=== PATIENT | female | born 1980 | race Caucasian/White ===

== ENCOUNTER 2017-05-23 17:35 | Emergency (ER) | payer MEDICAID ==
[2017-05-23 17:50] VITALS: O2SAT 96
[2017-05-23] MEDS ORDERED: NS 1,000 ML IV ONE (18:18)
[2017-05-23] MEDS ORDERED: KETOROLAC 30 MG/1 ML SDV IVP ONE (18:18)
--- NOTE | 2017-05-23 18:23 | EDPHY ---
H & P Stated Complaint: nausea, abdominal pain one day Time Seen by Provider: 05/23/17 17:56 HPI/ROS: CHIEF COMPLAINT: Abdominal pain nausea History by patient HISTORY OF PRESENT ILLNESS: 36-year-old otherwise healthy woman with an IUD presents complaining of 1 day of intermittent sharp stabbing abdominal pain which she described as migratory and lasting just a few seconds at a time. Occurred in her right upper quadrant as well as her right lower quadrant and left upper quadrant. She has also had some pain in which she describes as her "kidneys ". Patient states that last night she woke up in the middle the night and was having a hard time getting comfortable last night but could not explain exactly why and was not having any specific pain at that time.. She also felt her heart was racing at that time. This morning she woke up with a poor appetite and felt nauseated after eating. However this afternoon she was able to eat some crackers without making symptoms worse. She had a normal bowel movement yesterday and none today. There has been no diarrhea. She does not feel constipated. She has been passing gas. She does say she had a fever of 101 at home. She denies any respiratory symptoms including cough, runny nose or chest pain. She has had no actual vomiting. She denies any dysuria, urgency frequency or hematuria but does say that 2 days ago she had 1 episode where she felt like maybe she was "getting a UTI "with the symptoms resolved after urinating once. She has no prior history of kidney stones. Her family history is unknown because she is adopted. She was seen by her primary care physician for vaginal discharge about a week ago and had negative cultures at that time and ultrasound showed that her IUD was in place. She has started some vaginal spotting but states that she has a copper IUD in that this is about the time she is expected to get her cycle. Patient had a glass of wine to drink last night and as use occasional marijuana but not recently. She denies any other medication or drug use. REVIEW OF SYSTEMS: As in HPI, and all other systems reviewed and are negative Source: Patient - Personal History LMP (Females 10-55): IUD In Place Current Tetanus Diphtheria and Acellular Pertussis (TDAP): Yes - Medical/Surgical History Hx Asthma: No Hx Chronic Respiratory Disease: No Hx Diabetes: No Hx Cardiac Disease: No Hx Renal Disease: No Hx Cirrhosis: No Hx Alcoholism: No Hx HIV/AIDS: No Hx Splenectomy or Spleen Trauma: No Other PMH: none - Social History Smoking Status: Never smoked - Physical Exam Exam: General Appearance: Alert, well appearing. Eyes: Pupils equal and round, no pallor or injection. Mouth: Mucous membranes moist. Respiratory: Normal, effort, lungs are clear to auscultation. No wheezes, rales or rhonchi. Cardiovascular: Regular rate and rhythm. S1, S2, no murmurs, gallops or rubs appreciated Gastrointestinal: bowel sounds normal, Abdomen is soft and nondistended nontender, no masses Back: Mild bilateral CVA tenderness, no bony tenderness Neurological: Awake, alert and oriented x 3, no pronator drift, normal gait, no pronator drift Skin: Warm and dry, no rashes. Musculoskeletal: No deformities or tenderness. Extremities: full range of motion, no edema Psychiatric: Patient has normal affect, there is no agitation. Constitutional: Initial Vital Signs Temperature (C) 36.8 C 05/23/17 17:46 Heart Rate 98 05/23/17 17:46 Respiratory Rate 18 05/23/17 17:46 Blood Pressure 120/86 H 05/23/17 17:46 O2 Sat (%) 96 05/23/17 17:46 O2 Delivery Mode Room Air Allergies/Adverse Reactions: Sulfa (Sulfonamide Antibiotics) Allergy (Verified 05/23/17 17:50) Home Medications: Medication Instructions Recorded NK [No Known Home Meds] 05/23/17 Medical Decision Making ED Course/Re-evaluation: 36-year-old woman presents complaining of nausea and intermittent stabbing abdominal pain and generalized malaise and fever at home. Patient is afebrile here. Urinalysis is positive for blood but no evidence of infection. The patient is starting her menses currently. Patient was given IV fluids and ketorolac with improvement in her symptoms. Her abdominal exam was benign with no evidence of acute surgical processes such as appendicitis at this time. Patient had a normal white blood cell count and normal electrolytes. It is possible the patient's symptoms are due to ureterolithiasis history intermittent stabbing pain and hematuria. She has however normal kidney function is currently asymptomatic. These may also be early flu symptoms with her fever at home. There is no evidence of urinary tract infection. At this point I recommended symptomatic treatment and re-evaluation if she develops new or worsening symptoms. We discussed home care with ibuprofen and fluids and return precautions including but not limited to inability to take oral fluids, worsening pain, respiratory symptoms or other new problems or concerns. Patient and understand agreeable to this plan. - Data Points Laboratory Results: Laboratory Results 05/23/17 18:20 05/23/17 18:20 05/23/17 05/23/17 05/23/17 18:20 18:20 17:55 WBC 7.98 10^3/uL 10^3/uL (3.80-9.50) RBC 5.16 10^6/uL 10^6/uL (4.18-5.33) Hgb 15.3 g/dL g/dL (12.6-16.3) Hct 44.2 % % (38.0-47.0) MCV 85.7 fL fL (81.5-99.8) MCH 29.7 pg pg (27.9-34.1) MCHC 34.6 g/dL g/dL (32.4-36.7) RDW 12.2 % % (11.5-15.2) Plt Count 240 10^3/uL 10^3/uL (150-400) MPV 8.3 fL L fL (8.7-11.7) Neut % (Auto) 82.8 % H % (39.3-74.2) Lymph % (Auto) 12.2 % L % (15.0-45.0) [place]estone % (Auto) 4.1 % L % (4.5-13.0) Eos % (Auto) 0.3 % L % (0.6-7.6) Baso % (Auto) 0.5 % % (0.3-1.7) Nucleat RBC Rel Count 0.0 % % (0.0-0.2) Absolute Neuts (auto) 6.61 10^3/uL H 10^3/uL (1.70-6.50) Absolute Lymphs (auto) 0.97 10^3/uL L 10^3/uL (1.00-3.00) Absolute Monos (auto) 0.33 10^3/uL 10^3/uL (0.30-0.80) Absolute Eos (auto) 0.02 10^3/uL L 10^3/uL (0.03-0.40) Absolute Basos (auto) 0.04 10^3/uL 10^3/uL (0.02-0.10) Absolute Nucleated RBC 0.00 10^3/uL 10^3/uL (0-0.01) Immature Gran % 0.1 % % (0.0-1.1) Immature Gran # 0.01 10^3/uL 10^3/uL (0.00-0.10) Sodium 137 mEq/L mEq/L (134-144) Potassium 4.2 mEq/L mEq/L (3.5-5.2) Chloride 102 mEq/L mEq/L (97-110) Carbon Dioxide 20 mEq/l L mEq/l (22-31) Anion Gap 15 mEq/L mEq/L (8-16) BUN 12 mg/dL mg/dL (7-23) Creatinine 0.7 mg/dL mg/dL (0.6-1.0) Estimated GFR > 60 Glucose 105 mg/dL H mg/dL (70-100) Calcium 9.1 mg/dL mg/dL (8.5-10.4) Urine Color Urine Appearance Urine pH Ur Specific Terry Urine Protein Urine Ketones Urine Blood Urine Nitrate Urine Bilirubin Urine Urobilinogen Ur Leukocyte Esterase Urine RBC Urine WBC Ur Epithelial Cells Urine Bacteria Urine Glucose Urine Test NEGATIVE 05/23/17 17:55 WBC RBC Hgb Hct MCV MCH MCHC RDW Plt Count MPV Neut % (Auto) Lymph % (Auto) [place] % (Auto) Eos % (Auto) Baso % (Auto) Nucleat RBC Rel Count Absolute Neuts (auto) Absolute Lymphs (auto) Absolute Monos (auto) Absolute Eos (auto) Absolute Basos (auto) Absolute Nucleated RBC Immature Gran % Immature Gran # Sodium Potassium Chloride Carbon Dioxide Anion Gap BUN Creatinine Estimated GFR Glucose Calcium Urine Color YELLOW Urine Appearance CLEAR Urine pH 6.0 (5.0-7.5) Ur Specific Terry <= 1.005 (1.002-1.030) Urine Protein NEGATIVE (NEGATIVE) Urine Ketones NEGATIVE (NEGATIVE) Urine Blood 2+ H (NEGATIVE) Urine Nitrate NEGATIVE (NEGATIVE) Urine Bilirubin NEGATIVE (NEGATIVE) Urine Urobilinogen 0.2 EU EU (0.2-1.0) Ur Leukocyte Esterase NEGATIVE (NEGATIVE) Urine RBC 3-5 /hpf H /hpf (0-3) Urine WBC 0-1 /hpf /hpf (0-3) Ur Epithelial Cells TRACE /lpf /lpf (NONE-1+) Urine Bacteria TRACE /hpf H /hpf (NONE SEEN) Urine Glucose NEGATIVE (NEGATIVE) Urine Test Medications Given: Discontinued Medications Sodium Chloride (Ns) 1,000 mls @ 0 mls/hr IV EDNOW ONE; Wide Open PRN Reason: Protocol Stop: 05/23/17 18:19 Last Admin: 05/23/17 18:30 Dose: 1,000 mls Ketorolac Tromethamine (Toradol) 15 mg IVP EDNOW ONE Stop: 05/23/17 18:19 Last Admin: 05/23/17 18:30 Dose: 15 mg Departure - Departure Disposition: Home, Routine, Self-Care Clinical Impression: Abdominal pain Qualifiers: Abdominal location: generalized Qualified Code(s): R10.84 - Generalized abdominal pain Hematuria Qualifiers: Hematuria type: other microscopic Qualified Code(s): R31.29 - Other microscopic hematuria; R31.2 - Other microscopic hematuria Condition: Good Instructions: Acute Abdominal Pain (ED) Additional Instructions: You were seen by Dr. Jo-Ann Diop today. The cause of her symptoms today is unclear. At this point there is no evidence for acute appendicitis. It is possible you are having a kidney stone. Please return if you develop recurrent severe pain, fever, inability to take oral fluids or medications, respiratory symptoms or other new problems or concerns. Return for any worsening or new concerns. Referrals: NONE *PRIMARY CARE P,. [Primary Care Provider] - As per Instructions
[2017-05-23 18:30] LABS: PLATELET COUNT 240 10^3/uL (150-400)
[2017-05-23 19:22] VITALS: BP 110/73; PULSE 76; RESP 16; TEMP 99.3
== END 2017-05-23 19:23 | disposition home or self-care (01) ==
LOC: CED 17:35
DX: R10.84 Generalized abdominal pain (principal); R31.29 Other microscopic hematuria; E86.9 Volume depletion, unspecified
CPT/HCPCS: 80048-PO; 81003-PO; 81015-PO; 81025-PO; 85025-PO; 96374; J1885